=== PATIENT | female | born 1960 | race Caucasian/White ===

== ENCOUNTER 2019-10-22 07:43 | Outpatient (CLI) | payer BC, SELFPAY ==
--- NOTE | 2019-10-22 08:00 | IR_ITS ---
WS: [id number] Lumbar myelogram, 10/22/2019 Clinical Data: Low back pain Comparison: Lateral lumbar spine, 01/28/2019. Fluoroscopy time: 1.5 minutes. Findings: With the usual technique, a 22 gauge spinal needle was inserted into the lumbar subarachnoid space at L2-L3. The contrast material was hand injected. Approximately 15 mL of 240 mg/mL Omnipaque entered the lumba r subarachnoid space. No intramedullary or intradural or extradural defects could be seen. There is a 0.7 cm anterolisthesis of L5 on S1. There is a levoscoliosis of the lumbar spine. Moderate osteoarth ritic change along the vertebral bodies is noted. There is a bone island in the proximal right femora l neck. Flexion, extension and neutral lateral views demonstrated no limitation of motion or increase in subl uxation. IR/IR myelogram sp lumbar [id number] Impression: 1. Negative lumbar myelogram. 2. No change in subluxation at L5-S1 on flexion or extension. 3. Osteoarthritis and levoscoliosis of the lumbar spine.
--- NOTE | 2019-10-22 10:30 | CT_ITS ---
WS: [id number] CT of the lumbar spine, additional two-dimensional coronal and sagittal imaging was obtained post mye logram. 10/22/2019 Clinical Data: Low back pain Comparison: MRI lumbar spine, 10/21/2018. DLP: 1814.[address] scans at [facility] use at least one of these dose optimization techniques: automat ed exposure control; mA and/or kV adjustment per patient size (includes targeted exams where dose is matched to clinical indication); or iterative reconstruction. Findings: There is a levoscoliosis of the lumbar spine. Osteoarthritic spurring of all lumbar vertebr al bodies is present. There is degenerative disc disease at all levels from L1-L2 through L5-S1. No c ompression fractures are seen. T12-L1: No canal stenosis, disc bulge or foraminal narrowing is seen. L1-L2: There is broad-based disc bulging causing canal stenosis. L2-L3: There is a broad-based disc bulge causing spinal stenosis along with a larger bulge on the rig ht causing right foraminal stenosis. There is right facet joint arthritis. L3-L4: There is a broad-based central disc bulge causing mild canal stenosis. L4-L5: There is a broad-based disc bulge along with facet joint arthritis causing canal and foraminal stenosis. L5-S1: Broad-based disc bulge along with facet joint arthritis causing canal and foraminal stenosis. CT/CT lumbar spine w con [id number] Impression: 1. Levoscoliosis with osteoarthritis and degenerative disc disease. 2. Multilevel disc bulging with canal and foraminal stenosis.
[2019-10-22] MEDS: iohexol 240 mg/mL 50 mL Btl INTRATHECA (10:57)
== END 2019-10-22 07:44 | disposition home or self-care (01) ==
PROVIDERS: Family Provider Family Medicine; PCP Family Medicine; Visit Provider Licensed Practical Nurse
DX: M41.86 Other forms of scoliosis, lumbar region (principal); M51.36 Other intervertebral disc degeneration, lumbar region; M47.816 Spondylosis without myelopathy or radiculopathy, lumbar region; M48.061 Spinal stenosis, lumbar region without neurogenic claudication; M51.26 Other intervertebral disc displacement, lumbar region
CPT/HCPCS: 62304; 72120; 72132; Q9966

== ENCOUNTER 2019-11-17 11:37 | Outpatient (RCR) | payer BC, SELFPAY | END 2019-11-25 15:58 | disposition home or self-care (01) | LOC: SPT 11:37 | PROVIDERS: PCP Family Medicine; Referring Provider Licensed Practical Nurse; Visit Provider Licensed Practical Nurse | DX: M51.17 Intervertebral disc disorders with radiculopathy, lumbosacral region (principal) | CPT/HCPCS: 97112; 97161 ==

== ENCOUNTER → 2019-11-19 10:08 | Outpatient (BNVA) | payer BC, SELFPAY | PROVIDERS: PCP Family Medicine; Visit Provider Licensed Practical Nurse | DX: M51.16 Intervertebral disc disorders with radiculopathy, lumbar region (principal); M43.17 Spondylolisthesis, lumbosacral region; M41.9 Scoliosis, unspecified | CPT/HCPCS: 99214 ==

== ENCOUNTER → 2020-01-04 15:00 | Outpatient (BNVA) | payer BC, SELFPAY | PROVIDERS: PCP Family Medicine; Visit Provider Licensed Practical Nurse | DX: M51.16 Intervertebral disc disorders with radiculopathy, lumbar region (principal); M43.17 Spondylolisthesis, lumbosacral region; M41.9 Scoliosis, unspecified | CPT/HCPCS: 99213 ==

== ENCOUNTER 2021-01-03 16:10 | Emergency (ER) | payer BC, SELFPAY ==
[2021-01-03] VITALS (26 sets, daily range): BP systolic 113–138; BP diastolic 68–87; PULSE 73–87; RESP 15–34; TEMP 36.7; O2SAT 97–100; BMI 28.3
--- NOTE | 2021-01-03 17:10 | XRR_ITS ---
PROCEDURE INFORMATION: Exam: XR Chest Exam date and time: 01/03/2021 5:10 PM Age: 60 years old Clinical indication: Sternal or substernal pain; Additional info: Chest pain TECHNIQUE: Imaging protocol: XR of the chest. Views: 1 view. Total images: 1 COMPARISON: No relevant prior studies available. FINDINGS: Lungs: No visible active interstitial or alveolar airspace disease. Pleural spaces: No pleural effusion. No pneumothorax. Heart/Mediastinum: Cardiac structures in configuration with arteriosclerosis. Bones/joints: Scoliosis. Degenerative disease of the visualized spine. XR/XR chest 1V portable [id number] IMPRESSION: Nonacute.
--- NOTE | 2021-01-03 17:10 | ECG_ITS ---
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
--- NOTE | 2021-01-03 17:28 | ED_ITS ---
HPI - Chest Pain General: Chief Complaint: Chest Pain Stated Complaint: PAIN IN CHEST AND NECK Time Seen by Provider: 01/03/21 17:24 History of Present Illness: HPI narrative: This patient is a 60-year-old female who presents to the emergency department with complaint of atypical type chest pain in her throat. Patient states this started yesterday. Patient states she had some relief after taking Tylenol. Patient states she feels it mostly when she takes a deep breath. Patient did recently have low back surgery. And activity has been decreased since that surgery. We will do medical evaluation treat as needed complaint: chest discomfort Onset (ago): day(s) Timing of current episode: episodic Pain location: left chest Pain radiation: neck Severity: moderate Quality: aching Relieving factors: nothing Exacerbating factors: nothing Associated symptoms: Deny abdominal pain, dyspnea, fever(s), nausea, palpitations or vomiting Review of Systems General: Reports: 10 or more systems reviewed and unremarkable except in HPI and below Const: Denies: fever(s), chills, body aches or fatigue Eyes: Denies: change in vision or blurry vision ENMT: Denies: throat pain, hoarseness or mouth pain Card: Reports: chest pain; Denies: palpitations, irregular heart rhythm, edema, swelling of feet/ankles or lightheadedness Resp: Denies: dyspnea, productive cough, non-productive cough, wheezing or pain on inspiration GI: Denies: abdominal pain, nausea or vomiting : Denies: flank pain, difficulty voiding, dysuria, urinary frequency, urinary urgency or urinary hesitancy Musc: Denies: neck pain, back pain, extremity pain, extremity swelling, joint pain, joint swelling, joint redness, joint warmth or limited range of motion Skin/Breast: Denies: rash, pruritus, erythema or skin tenderness Neuro: Denies: headache(s), numbness in extremities or weakness in extremities Psych: Denies: anxiety or depression PFSH ED PFSH: Medical History (Updated 01/03/21 @ 21:01 by Boogie Knight MD) Displacement of lumbar disc with radiculopathy Scoliosis Spondylolisthesis of lumbosacral region Surgical History History of hysterectomy partial History of tubal ligation Family History Mother Hypertension Sister Hypertension Social History Smoking and tobacco status: former smoker Alcohol intake: never Household members: spouse Marital status: Current occupational status: unemployed History of recent travel: No Physical Exam Const: COMMON NORMALS: no acute distress, average body habitus, patient oriented x3, no limitations, healthy appearing, alert and well nourished HENMT: COMMON NORMALS: normocephalic, atraumatic, hearing grossly normal bilaterally, external ears normal, EAC's normal, TM's normal bilaterally, Normal external nose present, Normal nasal mucous membranes and turbinates present, moist oral mucous membranes, oropharynx normal, dentition normal and gingiva normal HEAD & SCALP: normocephalic and atraumatic NOSE: Normal external nose present and Normal nasal mucous membranes and turbinates present EXTERNAL EAR: Yes external ears normal EXTERNAL AUDITORY CANAL: EAC's normal TYMPANIC MEMBRANE: TM's normal bilaterally Neck/C-Spine: COMMON NORMALS: full ROM, no lymphadenopathy, supple, no meningeal signs, no JVD, Thyroid normal and No carotid bruits THYROID: Thyroid normal Chest: COMMONS NORMALS: normal inspection of the chest, normal palpation of entire chest wall, normal inspection of the breasts and normal palpation of the breasts Breast/axilla inspection: Yes normal inspection of the breasts BREAST/AXILLA PALPATION: Yes normal palpation of the breasts Resp: COMMON NORMALS: normal respiratory effort, No retractions, No use of accessory muscles, clear to auscultation bilaterally and percussion normal AUSCULTATION: clear to auscultation bilaterally PERCUSSION: percussion normal Cardio: COMMON NORMALS: no JVD, regular rate, regular rhythm, S1 normal heart sound present, S2 normal heart sound present, No gallops present (Cardio), No clicks present (Cardio), No murmurs present (Cardio), No rub (Cardio) and Peripheral pulses 2+ throughout RATE: regular rate RHYTHM: regular rhythm HEART SOUNDS: S1 normal heart sound present and S2 normal heart sound present PERIPHERAL PULSES: Peripheral pulses 2+ throughout GI: COMMON NORMALS: Normal to inspection, nondistended, normoactive bowel sounds present, Soft to palpation, non-tender, No hepatosplenomegaly present, no masses and no bruits PALPATION: Yes Soft to palpation and Yes No hepatosplenomegaly present Back/Pelvis: COMMON NORMALS: thoracic and lumbar spine normal to inspection, no thoracic nor lumbar tenderness, thoraco-lumbar ROM normal and straight leg raise negative bilaterally Extremity: COMMON NORMALS: normal to inspection, full ROM, capillary refill normal, no joint enlargement, no clubbing, cyanosis or edema, no calf tenderness and no pedal edema Neuro: COMMON NORMALS: patient oriented x3 SENSORIUM/ORIENTATION: Yes alert MENINGEAL SIGNS: Yes no meningeal signs Course Reevaluation(s): Reevaluation #1: Negative evaluation in the emergency department any acute findings. Patient describes atypical type chest pain symptoms. Patient did have an elevated D-dimer however negative CT scan for any acute findings in the chest. Patient given reassurance. Encourage p.o. fluids. Take medications as prescribed. Follow-up with PCP or cardiology in 5 to 7 days as needed. Time: 21:00 Vital Signs: Vital signs: Vital Signs Temperature 98.1 F 01/03/21 16:17 Pulse Rate 81 01/03/21 20:45 Respiratory Rate 23 H 01/03/21 19:20 Blood Pressure 138/87 01/03/21 18:00 Pulse Oximetry 99 01/03/21 20:45 MDM - Chest Pain MDM Narrative: Medical decision making narrative: Negative evaluation in the emergency department any acute findings. Patient describes atypical type chest pain symptoms. Patient did have an elevated D-dimer however negative CT scan for any acute findings in the chest. Patient given reassurance. Encourage p.o. fluids. Take medications as prescribed. Follow-up with PCP or cardiology in 5 to 7 days as needed. Medical Records: Attestation: I reviewed the patient's medical records. Lab Data: Attestation: I reviewed the patient's lab results. Labs: Lab Results 01/03/21 01/03/21 01/03/21 17:30 17:30 17:30 WBC 9.6 10^3/uL 10^3/ uL (4.0-10.0) RBC 3.77 10^6/uL L 10 ^6/uL (4.1-5.3) Hgb 10.3 g/dL L g/dL (11.5-15.3) Hct 33.3 % L % (37.0-47.0) MCV 88.3 fl fl (81-99) MCH 27.3 pg L pg (28.0-34.0) MCHC 30.9 g/dL g/dL (30.0-36.0) RDW 13.4 % % (12.1-15.1) Plt Count 669 10^3/cmm H 10 ^3/cmm (130-400) MPV 8.7 fL fL (7.4-10.4) Neut % (Auto) 60.6 % % Lymph % (Auto) 28.0 % % [place] % (Auto) 8.8 % % Eos % (Auto) 2.0 % % Baso % (Auto) 0.3 % % Neut # (Auto) 5.84 10^3/uL 10^3 /uL (1.8-7.7) Lymph # (Auto) 2.7 10^3/uL 10^3/ uL (0.8-4.8) [place] # (Auto) 0.9 10^3/uL 10^3/ uL (0.2-0.9) Eos # (Auto) 0.2 10^3/uL 10^3/ uL (0.0-0.8) Baso # (Auto) 0.0 10^3/uL 10^3/ uL (0.0-0.1) Nucleated RBC % (a uto) 0 % % Nucleated RBCs # 0.0 /100WBC /100W BC D-Dimer Sodium 135 mmol/L L mmol /L (136-145) Potassium 4.0 mmol/L mmol/L (3.5-5.1) Chloride 98 mmol/L mmol/L (98-107) Carbon Dioxide 26 mmol/L mmol/L (22-29) Anion Gap 15.0 (5-19) BUN 12 mg/dL mg/dL (6-20) Creatinine 0.4 mg/dL L mg/dL (0.5-0.9) GFR Calculation 163.9 mL/min H mL /min (90-130) Glucose 88 mg/dL mg/dL (65-115) Calculated Osmolal ity 279 mOsm/kg L mOs m/kg (285-295) Calcium 9.1 mg/dL mg/dL (8.5-10.5) Total Bilirubin 0.3 mg/dL mg/dL (0.15-1.2) AST 23 U/L U/L (0-32) ALT 18 U/L U/L (0-33) Alkaline Phosphata se 172 IU/L H IU/L (35-105) Troponin T Baselin e 15 ng/L H ng/L (0-10) Troponin T 120 Min [place] Troponin T Total Protein 6.6 g/dL g/dL (6.6-8.7) Albumin 3.7 g/dL g/dL (3.5-5.2) Globulin 2.9 g/dL g/dL (1.3-4.6) 01/03/21 01/03/21 01/03/21 17:30 18:20 19:40 WBC RBC Hgb Hct MCV MCH MCHC RDW Plt Count MPV Neut % (Auto) Lymph % (Auto) [place] % (Auto) Eos % (Auto) Baso % (Auto) Neut # (Auto) Lymph # (Auto) [place] # (Auto) Eos # (Auto) Baso # (Auto) Nucleated RBC % (a uto) Nucleated RBCs # D-Dimer Cancelled 1.61 ug/mIFEU H u g/mIFEU (0-0.59) Sodium Potassium Chloride Carbon Dioxide Anion Gap BUN Creatinine GFR Calculation Glucose Calculated Osmolal ity Calcium Total Bilirubin AST ALT Alkaline Phosphata se Troponin T Baselin e Troponin T 120 Min [place] 15.34 ng/L H ng/L (0-10) Delta Troponin T 0.34 ABS# ABS# (0-10) Total Protein Albumin Globulin Imaging Data^: CXR: Attestation: I personally reviewed and interpreted this imaging study as follows: Radiologist's impression: IMPRESSION: Nonacute. CT Chest: Attestation: I personally reviewed and interpreted this imaging study as follows: Radiologist's impression: IMPRESSION: 1. No visible evidence of pulmonary embolism/pulmonary arterial thrombus. 2. No visible evidence of acute cardiopulmonary/cardiothoracic pathologic process. 3. Potential small left lateral wall ulcerative plaque proximal abdominal aorta just below the celiac artery. EKG Data^: EKG 1: Attestation: I personally reviewed and interpreted this EKG as follows: EKG interpretation date: 01/03/21 EKG interpretation time: 16:27 Prior EKG tracings: not available for review Interpretation: Sinus rhythm with heart rate of [address] changes EKG 2: Attestation: I personally reviewed and interpreted this EKG as follows: EKG interpretation date: 01/03/21 EKG interpretation time: 20:17 Interpretation: Sinus rhythm heart rate 79 normal EKG Discharge Plan Discharge Patient Disposition: Home Clinical Impression: Atypical chest pain Condition: Stable Prescriptions: No Action gabapentin 800 mg tablet 800 mg PO BID RF: 0 losartan 25 mg tablet 25 mg PO DAILY RF: 0 hydrochlorothiazide 25 mg tablet 25 mg PO DAILY RF: 0 tramadol 50 mg tablet 50 mg PO Q6H PRNRF: 0 naproxen 500 mg tablet 500 mg PO BID PRNRF: 0 Discharge Orders: Discharge ED (Routine); Ordered 01/03/21 Ordered By: Boogie Knight Referrals: Jorgito Whitley MD [Primary Care Provider] - Discharge Diet: Advance as tolerated Discharge Activity: Resume usual activity Patient Instructions: Opioid Safety Activity Restrictions/Additional Instructions: Encourage p.o. fluids. Take medications as prescribed. Follow-up with PCP or cardiology in 5 to 7 days as needed. Coding Level of Care Code ED Parts Coordinator for Chg Fwd Exam Comprehensive
[2021-01-03 17:42] LABS: Basophils % 0.3 %; Eosinophils # 0.2 10^3/uL (0.0-0.8); Hematocrit 33.3 % (37.0-47.0); Hemoglobin 10.3 g/dL (11.5-15.3); Lymphocytes # 2.7 10^3/uL (0.8-4.8); Mean Corpuscular HGB Conc 30.9 g/dL (30.0-36.0); Mean Corpuscular Hemoglobin 27.3 pg (28.0-34.0); Mean Corpuscular Volume 88.3 fl (81-99); Mean Platelet Volume 8.7 fL (7.4-10.4); Monocytes # 0.9 10^3/uL (0.2-0.9); Monocytes % 8.8 %; Neutrophils # 5.84 10^3/uL (1.8-7.7); Neutrophils % 60.6 %; Nucleated Red Blood Cells % 0 %; Platelet Count 669 10^3/cmm (130-400); Red Blood Count 3.77 10^6/uL (4.1-5.3); Red Cell Distribution Width 13.4 % (12.1-15.1); White Blood Count 9.6 10^3/uL (4.0-10.0)
[2021-01-03 18:00] LABS: Alanine Aminotransferase 18 U/L (0-33); Albumin Level 3.7 g/dL (3.5-5.2); Alkaline Phosphatase 172 IU/L (35-105); Aspartate Amino Transferase 23 U/L (0-32); Blood Urea Nitrogen 12 mg/dL (6-20); Calcium 9.1 mg/dL (8.5-10.5); Carbon Dioxide 26 mmol/L (22-29); Chloride 98 mmol/L (98-107); Globulin 2.9 g/dL (1.3-4.6); Glomerular Filtration Rate 163.9 mL/min (90-130); Glucose 88 mg/dL (65-115); Osmolality Calculated 279 mOsm/kg (285-295); Sodium 135 mmol/L (136-145); Total Bilirubin 0.3 mg/dL (0.15-1.2); Total Protein 6.6 g/dL (6.6-8.7)
[2021-01-03 18:02] LABS: Troponin(5th) Baseline 15 ng/L (0-10)
[2021-01-03 18:45] LABS: D Dimer 1.61 ug/mIFEU (0-0.59)
--- NOTE | 2021-01-03 19:02 | CTR_ITS ---
PROCEDURE INFORMATION: Exam: CTA Chest With Contrast Exam date and time: 01/03/2021 7:02 PM Age: 60 years old Clinical indication: Shortness of breath; Additional info: SOB with elevated ddimer. Central chest pain. Back surgery on 12/15/20 TECHNIQUE: Imaging protocol: Computed tomographic angiography of the chest with contrast. 3D rendering (Not supervised by radiologist): MIP and/or 3D reconstructed images were created by the technologist. Total images: 860 Radiation optimization: All CT scans at this facility use at least one of these dose optimization techniques: automated exposure control; mA and/or kV adjustment per patient size (includes targeted exams where dose is matched to clinical indication); or iterative reconstruction. Contrast material: OMNI 350; Contrast volume: 73 ml; Contrast route: INTRAVENOUS (IV); COMPARISON: CR XR chest 1V portable [id number] 01/03/2021 5:35 PM RADIATION DOSE METRICS: Total DLP (mGy-cm): 576.39 FINDINGS: Pulmonary arteries: No visible evidence of pulmonary embolism/pulmonary arterial thrombus. Aorta: The thoracic aorta is nonaneurysmal. No visible intimal flap or dissection. Mild to moderate arterial sclerotic disease. Potential small left lateral wall ulcerative plaque proximal abdominal aorta just below the celiac artery (series 2, image 442). Lungs: Mild centrilobular emphysema. No visible active interstitial or alveolar airspace disease. Rare calcified granuloma of antecedent disease. Pleural spaces: No pneumothorax. No pleural effusion. Heart: Cardiac size within normal limits. No visible pericardial effusion. No visible coronary artery disease. Lymph nodes: Few marginally prominent aortopulmonic middle mediastinal lymph nodes without generalized mediastinal or hilar lymphadenopathy. Doubt of clinical significance. Adrenal glands: Suspected small 12 mm left adrenal adenoma. No follow-up recommended. Right adrenal gland unremarkable. Stomach and bowel: Status post gastroplasty. Bones/joints: No visible active or acute osseous pathology. Scoliosis. Degenerative disease and degenerative disc disease of the spine with spondylosis deformans. Soft tissues: Unremarkable. Other findings: Evidence of antecedent granulomatous disease. CT/CT angio chest PE protcl [id number] IMPRESSION: 1. No visible evidence of pulmonary embolism/pulmonary arterial thrombus. 2. No visible evidence of acute cardiopulmonary/cardiothoracic pathologic process. 3. Potential small left lateral wall ulcerative plaque proximal abdominal aorta just below the celiac artery. Radiation Dose CTDIVOL = (mGy): DLP = 576.39 (mGy-cm)
--- NOTE | 2021-01-03 19:10 | ECG_ITS ---
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 Measurements Intervals [place] Rate: 79 P: 58 AL: 148 QRS: 49 QRSD: 84 T: 52 QT: 366 QTc: 420 Interpretive Statements SINUS RHYTHM Compared to ECG 01/03/2021 16:27:23 ST (T wave) deviation no longer present Electronically Signed On 01-04-2021 21:43:46 CDT by Dominik Szymanski M.D. [id number]
[2021-01-03] MEDS: iohexol 350 mg/mL 100 mL Btl IV (19:40)
[2021-01-03 20:33] LABS: Troponin 5 2HR 15.34 ng/L (0-10); Troponin 5 2HR Delta 0.34 ABS# (0-10)
== END 2021-01-03 21:13 | disposition home or self-care (01) ==
PROVIDERS: Family Medicine; Emergency Provider Emergency Medicine; PCP Family Medicine
DX: R07.89 Other chest pain (principal); Z87.891 Personal history of nicotine dependence
CPT/HCPCS: 71045; 71275; 80053; 84484; 85025; 85378; 93005; 99284; Q9967

== ENCOUNTER 2021-04-20 12:31 | Outpatient (CLI) | payer BC, SELFPAY ==
[2021-04-20 12:30] VITALS: BP 131/86; PULSE 72; RESP 20; TEMP 36.6; O2SAT 96; BMI 28.3
[2021-04-20 13:22] VITALS: BP 126/81; PULSE 72; RESP 18; TEMP 36.6; O2SAT 96
[2021-04-20 16:53] VITALS: BP 130/86; PULSE 66; RESP 16; TEMP 36.6; O2SAT 97
== END 2021-04-20 12:32 | disposition home or self-care (01) ==
LOC: OPS 12:33
PROVIDERS: PCP Family Medicine; Visit Provider Nurse Practitioner
DX: U07.1 COVID-19 (principal)
CPT/HCPCS: 96365

== ENCOUNTER 2023-10-22 07:36 | Day surgery (SDC) | payer BC, SELFPAY ==
[2023-10-22] VITALS (12 sets, daily range): BP systolic 129–161; BP diastolic 78–98; PULSE 58–79; RESP 16–17; TEMP 36.1–36.6; O2SAT 96–100; BMI 28.3
[2023-10-22] MEDS: sodium chloride 0.9% 1,000 ML 30 ML IV (08:20)
--- NOTE | 2023-10-22 08:43 | W.PM.OPSUD ---
Surgery/Procedure H&P Update DATE OF PROCEDURE: October 22, 2023 DATE H&P PERFORMED: 09/27/23 H&P UPDATE INFORMATION: I have reviewed H&P completed within last 30 days, I have examined patient prior to procedure and No changes to prior documentation PLANNED PROCEDURE: Operation Date: 10/22/23 09:10 Proposed Procedures p Laparoscopic Cholecystectomy 38156, K80.20(Not Applicable) - Phillip Sandy,
--- NOTE | 2023-10-22 09:20 | ANES.PREANE2 ---
Pre-Anesthetic Assessment Height/Weight: Height 1.5 m Weight 63.503 kg Temp Pulse Resp BP Pulse Ox O2 Del Method 97.7 F 61 16 147/88 97 Room Air 10/22/23 07:57 10/22/23 07:57 10/22/23 07:57 10/22/23 07:57 10/22/23 07:57 10/22/23 08:18 Operation Date: 10/22/23 09:10 Proposed Procedures p Laparoscopic Cholecystectomy 94573, K80.20(Not Applicable) - Phillip Sandy DO Familial anesthetic complications: none Was Beta Cam taken within 24 hours: N/A Was Clonidine taken within 24 hours: N/A Last intake: Intake Last Liquid Date 10/21/23 Last Liquid Time 23:30 Last Solid Date 10/21/23 Last Solid Time 21:00 Social No alcohol and No tobacco Exam alert, oriented x 3, clear to auscultation bilaterally and regular rate & rhythm Airway Mallampati: Class II Dentition: false CV/HEM Hypertension Anesthetic Plan ASA status: 2 Anesthesia: General Risk of > 500 ml blood loss (7ml/kg in children): No Medications/Allergies Home Medications Medication Instructions Recorded Confirmed Last Taken Type losartan 50 mg tablet 50 mg PO DAILY 09/27/23 10/21/23 10/15/23 History phentermine 15 mg capsule 15 mg PO DAILY 09/27/23 10/21/23 10/15/23 History diclofenac sodium 75 mg 75 mg PO DAILY 10/21/23 10/21/23 10/21/23 History tablet,delayed release Allergies Allergy/AdvReac Type Severity Reaction Status Date / Time morphine Allergy rash, Verified 09/27/23 08:41 pruritus Current Medications Generic Name Dose Route Start Last Admin Trade Name Freq PRN Reason Stop Dose Admin Sodium Chloride 1,000 mls @ 30 mls/hr 10/22/23 07:45 10/22/23 08:20 Sodium Chloride 0.9% IV 10/23/23 07:44 30 mls/hr .Q24H BREANNA Administration PFSH Anesthesia Medical History (Updated 09/27/23 @ 09:27 by Phillip Sandy DO) Scoliosis Spondylolisthesis of lumbosacral region Displacement of lumbar disc with radiculopathy Surgical History (Updated 09/27/23 @ 09:27 by Phillip Sandy DO) History of gastric bypass History of tubal ligation History of hysterectomy partial Family History Mother Hypertension Sister Hypertension Social History Smoking and tobacco/nicotine status: former use of tobacco/nicotine Alcohol intake: never Substance/Drug Use: never Household members: spouse Marital status: Current occupational status: unemployed Data Anesthesia Cardiac Studies: No Data to Display
[2023-10-22] MEDS: ceFAZolin 2,000 mg SDV 2000 MG IVP (10:33)
[2023-10-22] MEDS: lidocaine-epi 2% PF 1:200,000 20 mL SDV XX (11:05)
--- NOTE | 2023-10-22 11:21 | P.OP_ITS ---
Operative Report Date of procedure: October 22, 2023 Surgeon: Phillip Sandy DO Brief History: Very pleasant 62-year-old female with symptomatic cholelithiasis. Laparoscopic cholecystectomy is indicated. The risks and benefits were explained and documented. Procedure: Preoperative diagnosis: Symptomatic cholelithiasis Postoperative diagnosis: Same Procedure performed: Laparoscopic cholecystectomy Surgeon: Dr. Phillip Sandy DO Estimated blood loss: 5 mL Specimens: Gallbladder to pathology Complications: None apparent Description of procedure: Patient was wheeled into the operative room and placed on the OR table in a supine position. Abdomen was inspected prepped and draped in usual sterile fashion. Time-out was performed and all present were in agreement. A 15 blade scalp was used to make a stab incision in the left upper quadrant and intra- abdominal insufflation was achieved using a Veress needle. After localizing the tissue incisions were made and a 5 millimeter trocar was placed into the umbilicus as well as 2 in the right upper quadrant. A 12 millimeter trocar was placed in the epigastrium. Gallbladder was grasped and elevated. The triangle of Calot was carefully dissected using blunt dissection and electrocautery until the triangle of Calot clearly identified. The cystic duct was clipped proximally and double clipped distally. The duct was then ligated proximally. The cystic artery was doubly clipped and ligated. The gallbladder was then removed from the liver bed using electrocautery. The gallbladder was removed from the abdomen using an Endo-Catch bag through the epigastric incision. The liver bed was inspected and no bleeding was seen. The abdomen was irrigated and suctioned. All ports removed. Skin was washed and dried. Incisions were closed with 4-0 Monocryl in a subcuticular interrupted fashion. Skin glue was applied. Patient tolerated the procedure well.
[2023-10-22] MEDS: ondansetron 2 mg/ML SDV 2 mL 4 MG IVP ×2 (12:06→12:18)
[2023-10-22] MEDS: HYDROcodone-acetaminophen 7.5-325 mg Tablet 1 TAB PO (12:44)
--- NOTE | 2023-10-22 13:50 | ANE.PACU2 ---
Inpatient post-anesthesia follow up: Airway intact: Yes Vital signs: Temperature 98 F Pulse Rate 70 Respiratory Rate 17 Blood Pressure 143/96 Pulse Oximetry 96 Oxygen Delivery Me thod Room Air Oxygen Flow Rate 6 Fraction of Inspir ed Oxygen Hydration adequate: Yes Nausea and vomiting: No Pain level: 1 Mental status: Baseline
== END 2023-10-22 13:55 | disposition home or self-care (01) ==
PROVIDERS: PCP Family Medicine; Visit Provider Surgery
PROC: 0FT44ZZ Resection of Gallbladder, Percutaneous Endoscopic Approach (ICD-10-PCS; CPT 47562; principal; 2023-10-22 09:10)
DX: K80.10 Calculus of gallbladder with chronic cholecystitis without obstruction (principal); I10 Essential (primary) hypertension; Z87.891 Personal history of nicotine dependence; Z86.19 Personal history of other infectious and parasitic diseases; Z98.84 Bariatric surgery status
CPT/HCPCS: 47562; 88304; J0690; J1100; J2405; J2704; J2710; J3010; J3490; J7030

== ENCOUNTER 2023-11-27 10:35 | Day surgery (SDC) | payer BC, SELFPAY ==
[2023-11-27 10:51] VITALS: BP 159/89; PULSE 75; RESP 16; TEMP 36.5; O2SAT 98; BMI 27.6
[2023-11-27] MEDS: sodium chloride 0.9% 1,000 ML 30 ML IV (10:59)
--- NOTE | 2023-11-27 12:11 | ANES.PREANE2 ---
Pre-Anesthetic Assessment Height/Weight: Height 4 ft 11 in Weight 137 lb Temp Pulse Resp BP Pulse Ox O2 Del Method 97.7 F 75 16 159/89 98 Room Air 11/27/23 10:51 11/27/23 10:51 11/27/23 10:51 11/27/23 10:51 11/27/23 10:51 11/27/23 10:51 Operation Date: 11/27/23 11:45 Proposed Procedures p EGD Dilation W/ Balloon 19863, 91630, G0105, R13.10, Z98.84, Z896.19(Not Applicable) - DO glynn Lin Colonoscopy(Not Applicable) - Phillip Sandy DO Last intake: Intake Last Liquid Date 11/26/23 Last Liquid Time 23:15 Last Solid Date 11/25/23 Last Solid Time 19:00 Exam alert, oriented x 3, clear to auscultation bilaterally and regular rate & rhythm Airway Submandibular: within normal limits Cervical ROM: within normal limits Mallampati: Class II Dentition: false Anesthetic Plan ASA status: 2 Anesthesia: MAC Other: No prior issues with anesthesia Bowel prep completed Quit smoking 2 years ago Hypertension, takes losartan Status post gastric bypass surgery Lumbar stenosis Prior EKG normal sinus rhythm Plan for MAC anesthesia Medications/Allergies Home Medications Medication Instructions Recorded Confirmed Last Taken Type losartan 50 mg tablet 50 mg PO DAILY 09/27/23 11/27/23 11/26/23 History phentermine 15 mg capsule 15 mg PO DAILY 09/27/23 11/27/23 11/20/23 History diclofenac sodium 75 mg 75 mg PO DAILY 10/21/23 11/27/23 11/26/23 History tablet,delayed release hydrocodone 7.5 mg-acetaminophen 1 tab PO Q6H PRN pain #20 tabs 10/22/23 11/27/23 Unknown Rx 325 mg tablet ondansetron 8 mg disintegrating 8 mg PO Q8H PRN nausea and 11/21/23 11/27/23 Unknown Rx tablet vomiting #20 tabs docusate sodium 100 mg capsule 100 mg PO BID PRN Constipation 11/25/23 11/27/23 Unknown History (Colace) Allergies Allergy/AdvReac Type Severity Reaction Status Date / Time morphine Allergy rash, Verified 11/25/23 10:17 pruritus Current Medications Generic Name Dose Route Start Last Admin Trade Name Freq PRN Reason Stop Dose Admin Sodium Chloride 1,000 mls @ 30 mls/hr 11/27/23 10:45 11/27/23 10:59 Sodium Chloride 0.9% IV 11/28/23 10:44 30 mls/hr .Q24H BREANNA Administration PFSH Anesthesia Medical History Scoliosis Spondylolisthesis of lumbosacral region Displacement of lumbar disc with radiculopathy Surgical History (Updated 10/28/23 @ 14:06 by Phillip Sandy DO) Status post laparoscopic cholecystectomy History of gastric bypass History of tubal ligation History of hysterectomy partial Family History Mother Hypertension Sister Hypertension Social History Smoking and tobacco/nicotine status: never used tobacco/nicotine Alcohol intake: never Substance/Drug Use: never Household members: spouse Marital status: Current occupational status: unemployed Data Anesthesia Cardiac Studies: No Data to Display
--- NOTE | 2023-11-27 12:31 | PM.HP ---
Providers/Chief Complaint Primary Care Provider: Jorgito Whitley MD Chief Complaint: R13.10, Z98.84, Z86.19 History of Present Illness Aiyana Garcia is a 63 year old female Review of Systems General: Reports: 10 or more systems reviewed and unremarkable except in HPI and below Medications/Allergies Home Medications Medication Instructions Recorded Confirmed Last Taken Type losartan 50 mg tablet 50 mg PO DAILY 09/27/23 11/27/23 11/26/23 History phentermine 15 mg capsule 15 mg PO DAILY 09/27/23 11/27/23 11/20/23 History diclofenac sodium 75 mg 75 mg PO DAILY 10/21/23 11/27/23 11/26/23 History tablet,delayed release hydrocodone 7.5 mg-acetaminophen 1 tab PO Q6H PRN pain #20 tabs 10/22/23 11/27/23 Unknown Rx 325 mg tablet ondansetron 8 mg disintegrating 8 mg PO Q8H PRN nausea and 11/21/23 11/27/23 Unknown Rx tablet vomiting #20 tabs docusate sodium 100 mg capsule 100 mg PO BID PRN Constipation 11/25/23 11/27/23 Unknown History (Colace) Allergies Allergy/AdvReac Type Severity Reaction Status Date / Time morphine Allergy rash, Verified 11/25/23 10:17 pruritus PFSH Acute PFSH: Medical History Scoliosis Spondylolisthesis of lumbosacral region Displacement of lumbar disc with radiculopathy Surgical History Status post laparoscopic cholecystectomy History of gastric bypass History of tubal ligation History of hysterectomy partial Family History Mother Hypertension Sister Hypertension Social History Smoking and tobacco/nicotine status: never used tobacco/nicotine Alcohol intake: never Substance/Drug Use: never Household members: spouse Marital status: Current occupational status: unemployed Vitals/I&O/Wt Last Vital Signs Temp 97.7 F 11/27/23 10:51 Pulse 75 11/27/23 10:51 Resp 16 11/27/23 10:51 BP 159/89 11/27/23 10:51 Pulse Ox 98 11/27/23 10:51 O2 Del Method Room Air 11/27/23 10:51 Weight last 48 hrs Weight 137 lb A&P Assessment and plan (1) Dysphagia: (2) History of gastric bypass: (3) History of Helicobacter pylori infection: (4) Colon cancer screening: Plan EGD with possible balloon dilation and colonoscopy Attestations Medical Necessity Statement*: Home Coding Level of Care Code Acute Code for g Fwd Diagnoses Dysphagia R13.10 History of gastric bypass Z98.84 History of Helicobacter pylori infection Z86.19 Colon cancer screening Z12.11
[2023-11-27] MEDS: EPINEPHrine 1 mg/mL INJ XX (12:58)
[2023-11-27 13:21] VITALS: BP 126/83; PULSE 75; RESP 13; O2SAT 99
--- NOTE | 2023-11-27 13:21 | ANE.PACU2 ---
Inpatient post-anesthesia follow up: Airway intact: Yes Vital signs: Temperature 97.7 F Pulse Rate 69 Respiratory Rate 18 Blood Pressure 161/102 Pulse Oximetry 98 Oxygen Delivery Me thod Room Air Oxygen Flow Rate 2 Fraction of Inspir ed Oxygen Hydration adequate: Yes Nausea and vomiting: No Pain level: 1 Mental status: Baseline
[2023-11-27 13:30] VITALS: BP 161/102; PULSE 72; RESP 18; O2SAT 97
[2023-11-27 13:40] VITALS: BP 161/102; PULSE 69; RESP 18; O2SAT 98
== END 2023-11-27 14:15 | disposition home or self-care (01) ==
PROVIDERS: PCP Family Medicine; Visit Provider Surgery
PROC: 0DJD8ZZ Inspection of Lower Intestinal Tract, Via Natural or Artificial Opening Endoscopic (ICD-10-PCS; CPT 45378; 2023-11-27 11:45)
DX: Z12.11 Encounter for screening for malignant neoplasm of colon (principal); R13.10 Dysphagia, unspecified; D12.5 Benign neoplasm of sigmoid colon; Z98.84 Bariatric surgery status; Z86.19 Personal history of other infectious and parasitic diseases; Z95.1 Presence of aortocoronary bypass graft
CPT/HCPCS: 43239; 43245; 45385; 88305; 88342; J0171; J2704; J7030